=== PATIENT | female | born 1945 | race Caucasian/White ===

== ENCOUNTER 2020-01-23 14:00 | Outpatient (RCR) | payer SELFPAY | END 2020-09-05 14:25 | disposition home or self-care (01) | LOC: ANHCPRIII 14:00 | DX: J98.8 Other specified respiratory disorders (principal) | CPT/HCPCS: 99199 ==

== ENCOUNTER 2020-10-01 12:44 | Outpatient (CLI) | payer MEDICARE, SELFPAY ==
--- NOTE | ~2020-10-01 | MM_ITS ---
EXAMINATION: MM screening mihaela BI w sommer HISTORY: Screening TECHNIQUE: Craniocaudal and mediolateral oblique 3-D tomosynthesis images were obtained and synthetic 2-D images were generated. CAD analysis was submitted and interpreted. COMPARISON: Comparison to multiple prior studies sequentially, with oldest reviewed study dated 12/21. BREAST PARENCHYMAL COMPOSITION: There are scattered areas of fibroglandular density. FINDINGS: There is no evidence of suspicious mass, calcification, or architectural distortion to sugg est malignancy in either breast. There has been no suspicious interval change. IMPRESSION: 1. No mammographic evidence of malignancy. 2. Recommend routine screening mammography in one year. BI-RADS Category 1: Negative Reviewed, dictated and finalized at location A. MS CONSULTANT
== END 2020-10-01 12:45 | disposition home or self-care (01) ==
LOC: CHSIMG 12:45
PROVIDERS: PCP Internal Medicine; Visit Provider Internal Medicine
DX: Z12.31 Encounter for screening mammogram for malignant neoplasm of breast (principal)
CPT/HCPCS: 77063; 77067

== ENCOUNTER 2020-10-29 20:34 | Inpatient (IN) | payer MEDICARE, SELFPAY ==
[2020-10-29] VITALS (22 sets, daily range): BP systolic 129–173; BP diastolic 78–92; PULSE 99–111; RESP 24–40; TEMP 36.5; O2SAT 69–100
--- NOTE | ~2020-10-29 | XR_ITS ---
EXAMINATION: XR chest ET placement EXAM DATE: 10/30/2020 09:57 INDICATION: After intubation to confirm ET placement. TECHNIQUE: Portable AP frontal chest x-ray was obtained. Comparison is made to prior examination from 10/29/2020. FINDINGS: Endotracheal tube tip is 3 centimeters above the kristopher. Feeding tube is in position. Patient has small to moderate-sized bilateral pneumothoraces. There is moderate to severe amount of a cute bilateral airspace disease, likely infection or edema/ARDS. Clinical correlation. There are no sizable pleural effusions. The cardiomediastinal silhouette is prominent but magnified on this AP technique. Compared to previous examination, the pneumothoraces have developed. The airspace disease is unchange d. IMPRESSION: 1. Line and tube(s) in position. 2. Small to moderate bilateral pneumothoraces. 3. Moderate to severe acute airspace disease. Reviewed, dictated and finalized at location A. RVISOR INCISING
--- NOTE | ~2020-10-29 | XR_ITS ---
EXAMINATION: XR abdomen NG/feed tube insert EXAM DATE: 10/30/2020 09:57 INDICATION: Feeding tube placement. Intubated. TECHNIQUE: Frontal projection(s) of the abdomen for interpretation. Comparison is made to prior exami nation from 08/11/2009. FINDINGS: Feeding tube tip projects over gastric antrum, adequate. Endotracheal tube is in position. There is small to moderate bilateral pneumothoraces and moderate to severe airspace disease. The upp er abdominal bowel gas pattern is unremarkable. IMPRESSION: Feeding tube in position. Reviewed, dictated and finalized at location A. LER AND TEST PREPARER IMPRESSION: Feeding tube in position.
--- NOTE | ~2020-10-29 | CT_ITS ---
EXAMINATION: CTA chest PE protocol EXAM DATE: 10/30/2020 00:00 INDICATION: Shortness of breath, elevated d-dimer. TECHNIQUE: Spiral CTA of the chest (pulmonary arteries) was performed with 100 cc Omnipaque 350 intr avenous contrast injection. Images were acquired during the pulmonary arterial phase. Coronal maxi mum intensity projection 3D-reconstructions were created by the technologist on dedicated workstation . Axial, coronal and sagittal reformatted images were reviewed. The dose-length product (DLP) for t his examination was 654.49 mGy-cm. The exposure was tailored according to patient size (auto mA exp osure control), and iterative reconstruction (ASIR) was used as additional dose reduction technique. Comparison is made to prior examination from 03/30/2018. FINDINGS: There is right basilar segmental pulmonary embolism, low clot burden. No thoracic aortic dissection. Patient has moderate to severe pulmonary fibrosis, with interval development of groundgl ass opacities throughout the lungs which could be superimposed edema or infection, or more active sta ge of patient's chronic interstitial lung disease. There is moderate bronchiectasis. Several reactive mediastinal lymph nodes. Mild cardiomegaly. There are no pleural or pericardial effusions. Trache obronchial tree is patent. There is no mediastinal, hilar or axillary lymphadenopathy. There is n o pneumothorax. There is mild to moderate coronary arterial calcification, arterial sclerosis. Ther e is small sliding gastroesophageal hiatal hernia. There is mild to moderate thoracic spondylosis wi thout osteoblastic or osteolytic lesions identified. IMPRESSION: 1. Right basilar segmental pulmonary embolism, low clot burden. 2. Moderate to severe pulmonary fibrosis. Groundglass opacities throughout lungs, could be active in part of patient's interstitial lung disease (NSIP), edema or infection. No confluent consolidation. 3. Cardiomegaly. Pulmonary arterial hypertension. 4. Bronchiectasis. 5. Small hiatal hernia. Reviewed, dictated and finalized at location A. EAR MEDICINE TECH IMPRESSION: 1. Right basilar segmental pulmonary embolism, low clot burden. 2. Moderate to severe pulmonary fibrosis. Groundglass opacities throughout stu gs, could be active in part of patient's interstitial lung disease (NSIP), luisa a or infection. No confluent consolidation. 3. Cardiomegaly. Pulmonary arterial hypertension. 4. Bronchiectasis. 5. Small hiatal hernia.
--- NOTE | ~2020-10-29 | XR_ITS ---
EXAMINATION: XR chest-chest tube insert/pos EXAM DATE: 10/30/2020 11:37 INDICATION: charleen chest tube placement . TECHNIQUE: Portable AP frontal chest x-ray was obtained. Comparison is made to prior examination from earlier same date. FINDINGS: There are bilateral chest tubes overlying expected positions. Endotracheal tube tip is 2 ce ntimeters above the kristopher. Feeding tube is in position. Small anteromedially located right pneumothorax. There is moderate to severe amount of acute bilatera l airspace disease, likely infection or edema/ARDS. Clinical correlation. There are no sizable pleur al effusions. The cardiomediastinal silhouette is prominent but magnified on this AP technique. Pneumothoraces have significantly improved compared to previous exam. Airspace disease unchanged. IMPRESSION: 1. Tube(s) in position. 2. Small bilateral pneumothoraces, improved. 3. Moderate to severe acute airspace disease. Reviewed, dictated and finalized at location A. AGE MANAGEMENT CONSULTANT
--- NOTE | ~2020-10-29 | XR_ITS ---
EXAMINATION: XR chest 1V portable DATE: 10/29/2020 20:58 INDICATION: Shortness of breath. End-stage lung disease. TECHNIQUE: frontal view of the chest was obtained. COMPARISON: Chest radiograph dated 08/17/2019 FINDINGS: Lung volumes are decreased. Similar pattern of groundglass and coarse reticular opacities throughout both lungs with basilar predominance. No pleural effusion or pneumothorax. The cardiomediastinal silh ouette is normal. Moderate thoracic spondylosis. IMPRESSION: 1. Small lung volumes with no significant interval change in chronic diffuse bilateral interstitial l quinn disease. Reviewed, dictated and finalized at location A. CTOR GAME IMPRESSION: 1. Small lung volumes with no significant interval change in chronic diffuse bi lateral interstitial lung disease.
--- NOTE | 2020-10-29 20:43 | ECG_ITS ---
Measurements Intervals [place] Rate: 103 P: 32 VA: 224 QRS: -63 QRSD: 89 T: 78 QT: 324 QTc: 426 Interpretive Statements SINUS TACHYCARDIA WITH FIRST DEGREE AV BLOCK RSR' IN V1 OR V2, CONSIDER RIGHT VENTRICULAR HYPERTROPHY OR RIGHT VCD LEFT ANTERIOR FASCICULAR BLOCK VOLTAGE CRITERIA FOR LVH BORDERLINE ST-T WAVE ABNORMALITY- HIGH LATERAL LEADS BASELINE ARTIFACT- II, III, AVL, AVF ABNORMAL ECG Electronically Signed On 10-30-2020 7:06:15 MANAGER ORGANIZATIONAL by Ronn Archibald D.O.
--- NOTE | 2020-10-29 20:55 | ED.SOB ---
HPI - SOB/Dyspnea General Chief Complaint: Shortness of Breath/Dyspnea Stated Complaint: difficulty breathing Time Seen by Provider: 10/29/20 20:37 Source: patient Mode of arrival: EMS Limitations: no limitations History of Present Illness HPI Narrative: Patient is a 75-year-old female brought in respiratory distress, was in CPAP upon arrival. states that when she tried to stand up tonight she felt really weak oxygen saturation dropped and so they called EMS. When EMS arrived patient was in respiratory distress and immediately placed on a CPAP machine. Patient has a history of interstitial lung disease and on 15 L of O2 at home. Patient denies any cough, chest pain, abdominal pain, nausea, vomiting, fever or chills. Related Data Home Medications Medication Instructions Recorded Confirmed aspirin 81 mg PO DAILY 10/11/19 09/10/20 azathioprine 100 mg PO DAILY 10/11/19 09/10/20 calcium carbonate-vitamin D3 1 tablet PO BID 10/11/19 09/10/20 [Caltrate 600 plus D] prednisone 10 mg PO DAILY 10/11/19 09/10/20 rituximab [Rituxan] See Rx Instructions .ROUTE .COMPLEX 10/11/19 09/10/20 sildenafil 50 mg tablet 50 mg PO TID tablet 05/01/20 09/10/20 sulfamethoxazole 400 1 tablet PO 3XW tablet 05/01/20 09/10/20 mg-trimethoprim 80 mg tablet nintedanib 100 mg capsule 100 mg PO Q12H 09/10/20 09/10/20 Allergies Allergy/AdvReac Type Severity Reaction Status Date / Time No Known Allergies Allergy Verified 09/10/20 13:22 Review of Systems Review of Systems: All systems reviewed & are unremarkable except as noted in HPI and below Constitutional: Constitutional: Denies body ache(s), Denies chills, Denies excessive sweating, Denies fatigue, Denies fever(s), Denies headache(s), Denies lethargy, Denies malaise, Denies weakness and Denies weight loss Eyes: Eyes: Denies blurry vision, Denies change in vision and Denies loss of vision ENT: Denies dizziness, Denies ear discharge, Denies headache(s), Denies lip swelling, Denies epistaxis, Denies nasal congestion, Denies neck pain, Denies throat swelling and Denies tongue swelling Cardiovascular: Cardiovascular: Denies chest pain, Denies chest pain at rest, Denies chest pain with activity, Denies diaphoresis, Denies rapid heart rate, Denies edema, Denies irregular heart rhythm, Denies lightheadedness and Denies palpitations Respiratory: Respiratory: Denies chest congestion, Denies cough and Denies hemoptysis Gastrointestinal: Gastrointestinal: Denies abdominal pain, Denies melena, Denies hematochezia, Denies diarrhea, Denies nausea, Denies vomiting and Denies hematemesis Musculoskeletal: Musculoskeletal: Denies abnormal gait, Denies deformity, Denies joint swelling, Denies limited range of motion, Denies neck pain and Denies numbness Neurologic: Denies Abnormal speech present, Denies abnormal gait, Denies confusion, Denies dizziness, Denies headache(s), Denies focal weakness, Denies loss of vision, Denies numbness, Denies Other visual disturbances and Denies Sensory deficit (Neuro) Psychiatric: Psychiatric: Denies confusion, Denies depression, Denies auditory hallucinations, Denies homicidal ideation and Denies suicidal ideation Endocrine: Endocrine: Denies cold intolerance, Denies excessive sweating, Denies fatigue, Denies heat intolerance and Denies palpitations Hematologic/Lymphatic: Hematologic/Lymphatic: Denies easy bleeding and Denies easy bruising Allergic/Immunologic: Allergic/Immunologic: Denies lip swelling, Denies throat swelling and Denies tongue swelling PMFSH Past Medical History Medical History Hypothyroidism Skin lesion Surgical History Surgical History H/O right heart catheterization 01/2020 Family History Family History Father Patient's father is Heart disease Mother Heart disease
[2020-10-29 21:09] LABS: Basophils Percent Auto 0.2 % (0.2-1.2); Eosinophils Percent Auto 0.2 % (0-4.4); Hematocrit 47.2 % (37.0-47.0); Hemoglobin 15.5 g/dL (12.0-15.0); Immature Granulocyte Absolute 0.03 K/mm3 (0.00-0.031); Immature Granulocyte Percent A 0.5 % (0-0.5); Lymphocytes Absolute Auto 0.47 K/mm3 (0.9-3.2); Lymphocytes Percent Auto 7.9 % (18.3-44.2); Mean Corpuscular HGB Conc 32.8 g/dl (32-36); Mean Corpuscular Hemoglobin 30.8 pg (26-34); Mean Corpuscular Volume 93.8 fl (80-100); Mean Platelet Volume 9.6 fl (7.4-10.4); Monocytes Absolute Auto 0.3 K/mm3 (0.1-0.6); Monocytes Percent Auto 5.7 % (2.6-8.5); Neutrophils Absolute Auto 5.1 K/mm3 (1.3-6.7); Neutrophils Percent Auto 85.5 % (45.5-73.1); Platelet Count Result 214 k/mm3 (150-375); Red Blood Count 5.03 M/mm3 (4.2-5.4); Red Cell Distribution Width 13.2 % (11.5-14.5)
[2020-10-29] MEDS: IPRATROPIUM BR 0.02% INH SOLN 0.5 MG/2.5 ML VIAL INHALATION (21:20)
[2020-10-29] MEDS: ALBUTEROL SULFATE NEB 2.5 MG/0.5 ML INH 5 MG INHALATION (21:20)
[2020-10-29 21:22] LABS: Alanine Aminotransferase 27 U/L (4-35); Albumin Level 4.3 g/dL (3.5-5.1); Alkaline Phosphatase 68 U/L (38-126); Anion Gap 8 mmol/L (8-16); Aspartate Amino Transferase 55 U/L (14-36); Bilirubin,Total 1.5 mg/dL (0.2-1.3); Blood Urea Nitrogen 16 mg/dL (7-17); Calcium 9.3 mg/dL (8.4-10.2); Carbon Dioxide 33 mmol/L (22-30); Chloride 96 mmol/L (98-107); Estimated Glomerular Filt Rate > 60; Glucose 148 mg/dL (65-105); Potassium 4.8 mmol/L (3.4-5.0); Sodium 137 mmol/L (137-145)
[2020-10-29 21:25] LABS: Partial Thromboplastin Time 26.3 SECONDS (22.3-36.8); Prothrombin Time 13.4 Seconds (11.1-14.7)
[2020-10-29 21:28] LABS: D Dimer 2.49 ug/mL (<0.48)
[2020-10-29 21:31] LABS: Alveolar/Arterial O2 Gradient 356.7 mmHg; Base Excess ABG 1.9 mEq/l (+/-2.0); Fractional Inspired Oxygen 100 %; HCO3 ABG 27.3 mEq/l (22.0-26.0); Methemoglobin ABG 0.2 %THb (0-1.5); Oxygen Content ABG 21.8 %vol (16.0-22.0); Oxygen Saturation ABG 99.7 % (95.0-100.0); Oxyhemoglobin 98.1 % THb (90.0-100.0); PCO2 ABG 45.5 mmHg (35.0-45.0); PO2 ABG 310.8 mmHg (80.0-100.0); PO2 FiO2 Ratio Arterial Blood 3.11 %; Reduced Hemoglobin 0.7 %THb (0-5.0); Total Hemoglobin 15.3 g/dL (12.0-18.0); pH ABG 7.396 (7.350-7.450)
[2020-10-29 21:32] LABS: Device BIPAP; Expiratory Pressure 5 cmH2O; Inspiratory Pressure 12 cmH2O; Modified Allen's Test Pass; Site Drawn RIGHT RADIAL
[2020-10-29 21:33] LABS: NT Pro B Type Natriuretic Pept 138 PG/ML (5-100); Troponin I < 0.012 ng/mL (0.000-0.034)
[2020-10-30] VITALS (31 sets, daily range): BP systolic 126–183; BP diastolic 70–93; PULSE 88–124; RESP 23–40; TEMP 36.2–37; O2SAT 45–99; BMI 38.9
--- NOTE | 2020-10-30 00:20 | PC.NURSE ---
Pt. requesting to be taken on bipap. pt. placed on high flow o2 at 15L. ERP aware
[2020-10-30] MEDS: HEPARIN SOD/D5W 100 UNITS/ML 25,000 UNITS/250 ML BAG 18.34 UNITS IV CONT (01:13)
[2020-10-30] MEDS: IPRATROPIUM BR 0.02% INH SOLN 0.5 MG/2.5 ML VIAL INHALATION (02:54)
[2020-10-30] MEDS: ALBUTEROL SULFATE NEB 2.5 MG/0.5 ML INH 5 MG INHALATION (02:54)
--- NOTE | 2020-10-30 03:37 | PC.NURSE ---
This patient, Julia Cummings, was admitted to Intensive Care Unit-12. Patient/family oriented to hospital policies and general routines including ID bracelet, bed and alarms, visiting hours, pain management, procedures, bathroom and other care routines, personal items, smoking policy, room service/diet, and visiting hours. Information on how to activate the Rapid Response Team has been discussed. Patient/Family are encouraged to report perceived risks to care and to ask questions if they do not understand what they are told or what they should do.
[2020-10-30 04:53] LABS: Partial Thromboplastin Time 115.8 SECONDS (22.3-36.8)
[2020-10-30] MEDS: LACTATED RINGERS 1,000 ML 100 ML IV CONT (05:04)
[2020-10-30] MEDS: HEPARIN SOD/D5W 100 UNITS/ML 25,000 UNITS/250 ML BAG 17 UNITS IV CONT (05:04)
[2020-10-30] MEDS: LORazepam INJ (*CRX) 2 MG/ML VIAL 0.5 MG IV PUSH (06:26)
[2020-10-30] MEDS: hydrALAZINE HCL 20 MG/ML VIAL 10 MG IV PUSH (08:11)
[2020-10-30] MEDS: MORPHINE SULFATE (*CRX) 2 MG/ML INJ 1 MG IV PUSH (08:37)
[2020-10-30] MEDS: EPOPROSTENOL SODIUM 0.5 MG VIAL 1 MG INHALATION (10:15)
[2020-10-30] MEDS: CISATRACURIUM BESYLATE 200 MG in DEXTROSE 5% 80 ML 9.27 ML IV CONT (10:16)
[2020-10-30] MEDS: FENTANYL 2,500MCG/NS250ML(*CRX 2,500 MCG/250 ML BAG IV CONT (10:21)
[2020-10-30] MEDS: CISATRACURIUM BESYLATE 20 MG/10 ML VIAL 15.5 MG IV PUSH (10:25)
--- NOTE | 2020-10-30 11:13 | WPDCNINT ---
Assessment and Plan Assessment and plan (1) Acute hypoxemic respiratory failure: Code(s): J96.01 - Acute respiratory failure with hypoxia Status: Acute Assessment and Plan: Acute hypoxic respiratory failure likely related to possible worsening of the interstitial lung disease, possible COVID-19 pneumonia -SARS-CoV-2 PCR has been obtained and pending -patient was desaturating the 60s this morning, was consulted, patient was emergently intubated, post intubation patient developed bilateral pneumothoraces status post chest tube placed by surgery -patient currently on CMV mode of ventilation, low tidal volumes of 320, peep of 8, 100% FiO2 and rate of 32. Will maintain O2 sats greater than 88% given a severe interstitial lung disease - started patient on dexamethasone -continue bronchodilators (2) Bilateral pneumothorax: Code(s): J93.9 - Pneumothorax, unspecified Status: Acute Assessment and Plan: Bilateral pneumothoraces likely secondary to barotrauma. The automotive refinish technician at [facility] said that that was bound to happen due to her interstitial lung disease. -appreciate surgery placing bilateral chest tubes -chest x-ray post bilateral chest tubes with pneumothorax bilaterally (3) Acute pulmonary embolism: Qualifiers: Acute cor pulmonale presence: unspecified Pulmonary embolism type: other Qualified Code(s): I26.99 - Other pulmonary embolism without acute cor pulmonale Code(s): I26.99 - Other pulmonary embolism without acute cor pulmonale Status: Acute Assessment and Plan: Acute pulmonary embolism, -you heparin infusion -CTA chest 10/30/2020 shows 1. right basilar segmental pulmonary embolism, low clot burden. 2. Moderate to severe pulmonary fibrosis. Groundglass opacities throughout lungs, could be active in part of patient's interstitial lung disease (NSIP), edema or infection. No confluent consolidation. 3. Cardiomegaly. Pulmonary arterial hypertension. 4. Bronchiectasis. 5. Small hiatal hernia. (4) Interstitial pulmonary disease, unspecified: Code(s): J84.9 - Interstitial pulmonary disease, unspecified Status: Acute Assessment and Plan: Chronic interstitial lung disease, patient is followed by DR Hidalgo, automotive refinish technician at [facility], I discussed with him this morning and he stated that the patient is on Imuran, prednisone, Ofev, and rituximab. Patient uses 10 L of oxygen at rest at home and 15-18 L with exertion at home. Her interstitial lung disease has been worsening the course of years. The automotive refinish technician that if he could have called earlier and got in me earlier (as I had left a message for him early this morning prior to intubating the patient) he would have asked me not to intubate the patient. As her prognosis very poor and that she would not, the breathing machine (5) Essential hypertension: Code(s): I10 - Essential (primary) hypertension Status: Acute Assessment and Plan: Blood pressures have been stable now that patient is on sedation vacations (6) DVT prophylaxis: Code(s): Z29.9 - Encounter for prophylactic measures, unspecified Status: Acute Assessment and Plan: Continue heparin infusion Additional Plan Stress ulcer prophylaxis: Protonix Discussed with Yong, patient's and updated with patient's condition and plan of care. I also discussed with her regarding my discussion with the automotive refinish technician as [facility] healthcare. stated that he will be coming with daughter and will likely withdraw support as he does want her to suffer, he stated she did not want to be hooked up to machines. Code status: Full code Critical care time spent: 52 minutes Due to a high probability of clinically significant, life threatening deterioration, the patient required my highest level of preparedness to intervene emergently and I personally spent this critical care time directly and personally managing th
--- NOTE | 2020-10-30 11:36 | PM.PROC ---
Procedure Note - Detailed Date of procedure: 10/30/20 Pre-op diagnosis: ACUTE RESPIRATORY FAILURE, ACUTE PE bilateral pneumothorax Post-op diagnosis: same Procedure performed: placement of bilateral 20 [place] chest tube Description of procedure: The patient was in the ICU already intubated and sedated. A time-out was then done to verify the patient's identity, as well as the procedure being performed. I began with the right side and prepped and draped the right chest wall in normal sterile fashion. I then localized the area of our anticipated incision which was at the anterior axillary line at the level of the nipple. Once this was done, an incision was carried down through the skin and into the subcutaneous tissue. I then used a Jennifer clamp to gain access into the pleural space over the 4th rib space. A jarquin of air was noted upon gaining access. I then placed a 20 [place] chest tube into the right chest. This was directed posterior and superior. I then sutured the chest tube into position. Vaseline gauze and sterile dressing were placed and the tube was connected to the atrium. I then repeated the procedure on the left side again prepping and draping the left chest wall in normal sterile fashion. I then again localized the anticipated incision site at the anterior axillary line at the level of the nipple. I then made an incision and carried this down into the subcutaneous tissue. Using Jennifer clamped once again gain access into the chest cavity at the level of the 4th rib. Again a jarquin of air was noted upon gaining access into the left chest. I then placed a 20 [place] chest tube into the left chest again directing this posterior and superior. The chest tube was sutured into position and Vaseline gauze was placed around the opening. The tube was connected to the atrium. Sterile dressing was placed. Patient continues to be in critical condition in the ICU. Implants: bilateral 20 [place] chest tube Anesthesia: local Surgeon: Joelle Malik MD Estimated blood loss (mL): 10 Drains: No Packing: No Pathology: none sent Complications: No immediate complications Condition: critical Disposition: ICU Findings: bilateral pneumothorax status post bilateral chest tube
--- NOTE | 2020-10-30 11:47 | PM.CNGS ---
Assessment and Plan Assessment and plan (1) Acute hypoxemic respiratory failure: Code(s): J96.01 - Acute respiratory failure with hypoxia Status: Acute Assessment and Plan: will place bilateral chest tube History of Present Illness Consult details Consult date: 10/30/20 Reason for consult: chest tube Requesting physician: Jaz Duarte MD Narrative: The patient is a 75-year-old female with known severe interstitial lung disease presenting to the emergency department in respiratory failure. According to the family, the patient was very weak and having difficulty breathing. Workup in the emergency department was confirmatory of respiratory failure and distress requiring emergent intubation. The patient has now been transferred to the ICU and chest x-rays confirmatory of bilateral pneumothorax. We have been consulted for chest tube placement. Of note, the patient is on 15 L of oxygen at baseline. Review of Systems Review of Systems: ROS unobtainable: Yes unobtainable due to endotracheal tube PMFSH Past Medical History Medical History Hypothyroidism Skin lesion Surgical History Surgical History H/O right heart catheterization 01/2020 Family History Family History Father Patient's father is Heart disease Mother Heart disease Social History Social History Smoking status: Never smoker Second hand tobacco smoke exposure: No Alcohol intake: current Drinks per week: 3 Substance use: never Sexual Orientation (if Verbalized by the Patient): Straight or Heterosexual Spiritual care concerns: No Meds Home Medications and Allergies Home Medications Medication Instructions Recorded Confirmed Type aspirin 81 mg PO HS 10/11/19 10/30/20 History azathioprine 100 mg PO DAILY 10/11/19 10/30/20 History calcium carbonate-vitamin D3 1 tablet PO HS 10/11/19 10/30/20 History [Caltrate 600 plus D] prednisone 10 mg PO DAILY 10/11/19 10/30/20 History sulfamethoxazole 400 1 tablet PO 3XW tablet 05/01/20 10/30/20 History mg-trimethoprim 80 mg tablet nintedanib 100 mg capsule 100 mg PO Q12H 09/10/20 10/30/20 History sildenafil (pulm.hypertension) 20 mg PO TID 10/30/20 10/30/20 History simvastatin [Zocor] 20 mg PO HS 10/30/20 10/30/20 History Allergies Allergy/AdvReac Type Severity Reaction Status Date / Time No Known Allergies Allergy Verified 09/10/20 13:22 Vital Signs Vital Signs - 24 hr 10/29/20 20:30 10/29/20 20:40 10/29/20 20:42 Temperature 36.5 C Pulse Rate 102 H Respiratory Rate 25 H 37 H 40 H Blood Pressure 155/90 H Pulse Oximetry 100 100 10/29/20 20:43 10/29/20 20:45 10/29/20 21:00 Temperature Pulse Rate 100 103 H Respiratory Rate 31 H 30 H Blood Pressure Pulse Oximetry 100 100 10/29/20 21:15 10/29/20 21:30 10/29/20 21:31 Temperature Pulse Rate 104 H 104 H 103 H Respiratory Rate 29 H 33 H 24 H Blood Pressure 141/92 H Pulse Oximetry 100 100 100 10/29/20 21:45 10/29/20 22:00 10/29/20 22:01 Temperature Pulse Rate 106 H 103 H 103 H Respiratory Rate 31 H 26 H 24 H Blood Pressure 129/90 Pulse Oximetry 98 98 98 10/29/20 22:15 10/29/20 22:16 10/29/20 22:30 Temperature Pulse Rate 103 H 103 H 111 H Respiratory Rate 28 H 26 H 35 H Blood Pressure 129/90 Pulse Oximetry 97 97 69 L 10/29/20 22:31 10/29/20 22:50 10/29/20 23:00 Temperature Pulse Rate 108 H 102 H 99 Respiratory Rate 30 H 26 H 26 H Blood Pressure 173/87 H Pulse Oximetry 72 L 95 97 10/29/20 23:01 10/29/20 23:26 10/29/20 23:30 Temperature Pulse Rate 99 102 H 100 Respiratory Rate 26 H 26 H 24 H Blood Pressure 136/83 Pulse Oximetry 97 91 93 10/29/20 23:31 10/30/20 00:01 10/30/20 00:15 Temp
--- NOTE | 2020-10-30 12:22 | WPDPROCEDUR ---
Procedures Intubation Intubation Date: 10/30/20 Intubation Time: 09:54 A pre-procedural Time-Out was completed immediately before starting the procedure and confirmed: Patient Identification, Site, Procedure, Patient Position and the Availability of Requisite Equipment: Yes Sedative: etomidate Paralytic: rocuronium Laryngoscope: fiber optic video scope Assist device used: fiber optic device ET tube size: 7.5 Tube secured depth (cm): 23 Tube secured location: lips Tube placement confirmation: visualized tube passing through cords, equal breath sounds bilaterally, no breath sounds over epigastrium and confirmation by capnometry Patient tolerated procedure: well and no complications Intubation complications: none
--- NOTE | 2020-10-30 13:12 | PM.IMHP ---
H&P: HPI History of Present Illness Date/Time: 10/30/20 13:12 Chief complaint: ACUTE RESPIRATORY FAILURE, ACUTE PE Narrative: Date of visit 10/30 0900. Julia Cummings is a 75 year old female with known chronic interstitial lung disease on home O2 at 15 L with known pulmonary hypertension who presented to the emergency room with increasing shortness of breath and weakness and desaturation at home. According to her both had been ill the past week with a viral-like illness with coughing, malaise, low-grade fever, fatigue. The day of admission she became acutely short of breath and weak can be saturated a [place] to the emergency room. With BiPAP she did razor saturations into the low 90s and CTA revealed a right segmental pulmonary emboli with low clot burden and diffuse chronic lung disease. Her routine chest x-ray was unchanged from previous x-rays. She was admitted with acute on chronic respiratory failure possibly secondary to Covid, pulmonary emboli, or progression of her underlying disease. Review of Systems Review of Systems: Narrative: Review of systems difficult to obtain since she is having trouble talking with her extreme shortness of breath She does admit to increasing cough and shortness of breath pulmonary choudhury GI denied any diarrhea constipation melena or hematochezia CV some right-sided chest discomfort which she could not quantify no dysuria hematuria Integument no skin breakdown rashes Neuropsych no seizures no syncope Review of systems was abbreviated due to her shortness of breath PMFSH Past Medical History Medical History (Updated 10/30/20 @ 13:21 by Maxi Aguiar MD) Coronary artery disease Hypothyroidism Interstitial pulmonary disease Skin lesion Surgical History Surgical History H/O right heart catheterization 01/2020 Family History Family History Father Patient's father is Heart disease Mother Heart disease Social History Social History (Updated 10/30/20 @ 13:20 by Maxi Aguiar MD) Social History: Lives with her has a son and a daughter living and well who live in this area Smoking status: Never smoker Second hand tobacco smoke exposure: No Alcohol intake: current Drinks per week: 3 Substance use: never Sexual Orientation (if Verbalized by the Patient): Straight or Heterosexual Spiritual care concerns: No Meds Home Medications and Allergies Home Medications Medication Instructions Recorded Confirmed Type aspirin 81 mg PO HS 10/11/19 10/30/20 History azathioprine 100 mg PO DAILY 10/11/19 10/30/20 History calcium carbonate-vitamin D3 1 tablet PO HS 10/11/19 10/30/20 History [Caltrate 600 plus D] prednisone 10 mg PO DAILY 10/11/19 10/30/20 History sulfamethoxazole 400 1 tablet PO 3XW tablet 05/01/20 10/30/20 History mg-trimethoprim 80 mg tablet nintedanib 100 mg capsule 100 mg PO Q12H 09/10/20 10/30/20 History sildenafil (pulm.hypertension) 20 mg PO TID 10/30/20 10/30/20 History simvastatin [Zocor] 20 mg PO HS 10/30/20 10/30/20 History Allergies Allergy/AdvReac Type Severity Reaction Status Date / Time No Known Allergies Allergy Verified 09/10/20 13:22 Vital Signs Vital Signs - 24 hr 10/29/20 20:30 10/29/20 20:40 10/29/20 20:42 Temperature 36.5 C Pulse Rate 102 H Respiratory Rate 25 H 37 H 40 H Blood Pressure 155/90 H Pulse Oximetry 100 100 10/29/20 20:43 10/29/20 20:45 10/29/20 21:00 Temperature Pulse Rate 100 103 H Respiratory Rate 31 H 30 H Blood Pressure Pulse Oximetry 100 100 10/29/20 21:15 10/29/20 21:30 10/29/20 21:31 Temperature Pulse Rate 104 H 104 H 103 H Respiratory Rate 29 H 33 H 24 H Blood Pressure 141/92 H Pulse Oximetry 100 100 100 10/29/20 21:45 10/29/20 22:00 10/29/20 22:01 Temperature Pulse Rate 106 H 103 H 103 H Resp
[2020-10-30 13:30] LABS: SARS-CoV-2 RNA PCR Positive
[2020-10-30] MEDS: MORPHINE SULFATE (*CRX) 4 MG/ML INJ 5 MG IV PUSH (14:00)
[2020-10-30] MEDS: LORazepam INJ (*CRX) 2 MG/ML VIAL IV PUSH (14:00)
[2020-10-30] MEDS: MORPHINE SULFATE (*CRX) 2 MG/ML INJ IV PUSH (14:53)
--- NOTE | 2020-10-31 17:05 | PM.DDS ---
Discharge Sum: Prov Provider Primary care physician: Craig Ferguson DO Admitting provider: Galilea Marcial DO Consults: 10/30/20 Consult to Physician Routine Comment: md aware of pt. Consulting Provider: Jaz Duarte merchandising stock associate/MD group to consult: Felicia Reason for consultation: respiratory failure Has provider been notified: Yes 10/30/20 01:10 Consult to Physician Routine Comment: Consulting Provider: Ulices Monk Reason for consultation: ACUTE PE WITH RIGHT HEART STRAIN Has provider been notified: Yes 10/30/20 10:03 Consult to Physician Routine Comment: Consulting Provider: Jaz Duarte merchandising stock associate/MD group to consult: Surgery - Dr. Griffiths Reason for consultation: pneumothorax in room ICU 12 Has provider been notified: Yes 10/30/20 10:16 Consult to Physician Routine Comment: md notified Consulting Provider: Sridevi Davis merchandising stock associate/MD group to consult: PULMONOLOGY Reason for consultation: ILD, pulm HTN Has provider been notified: Yes Discharge Sum: Diag Contributing Factors (1) Coronary artery disease: (2) Acute and chronic respiratory failure with hypoxia: (3) Interstitial pulmonary disease, unspecified: (4) Acute pulmonary embolism: (5) Pure hypercholesterolemia: (6) Hypothyroidism: (7) Essential hypertension: (8) Pneumonia due to COVID-19 virus: Discharge Sum: Summary Date and Time Date of admission: 10/30/20 01:09 Summary Details: 75-year-old white female with chronic interstitial pulmonary disease on high-flow at 15 L nasal cannula home use presented to the emergency room with increasing shortness of breath. CT scan revealed pulmonary emboli and marked scarring. Subsequently COVID swab returned positive also. She continued to have increasing hypoxia with BiPAP and patient and family were approached and they decided to pursue mechanical ventilation. The patient's apprentice embalmer at [facility] was contacted and he encouraged the family to discontinue mechanical life support due to the fact that she would probably never be able to be extubated without tracheostomy. Family agreed and patient was terminally weaned and shortly thereafter. Additional Data Attending physician: Galilea Marcial DO
== END 2020-10-30 14:30 | disposition expired | DRG 208 ==
LOC: ANHED 10-30 01:23 → ANHICU 10-30 11:02
PROVIDERS: Admitting Provider Internal Medicine; Emergency Provider Emergency Medicine; PCP Internal Medicine; Visit Provider Internal Medicine
DX: U07.1 COVID-19 (principal); J96.21 Acute and chronic respiratory failure with hypoxia; I26.99 Other pulmonary embolism without acute cor pulmonale; J12.89 Other viral pneumonia; J84.9 Interstitial pulmonary disease, unspecified; J93.83 Other pneumothorax; I27.20 Pulmonary hypertension, unspecified; Z99.81 Dependence on supplemental oxygen; I25.10 Atherosclerotic heart disease of native coronary artery without angina pectoris; I10 Essential (primary) hypertension; E03.9 Hypothyroidism, unspecified; E78.00 Pure hypercholesterolemia, unspecified; Z79.82 Long term (current) use of aspirin; Z79.899 Other long term (current) drug therapy
CPT/HCPCS: 31500; 36415; 36600; 71045; 71275; 80053; 82375; 82805; 83050; 83880; 84484; 85025; 85380; 85610; 85730; 87635; 93005; 94002; 94003; 94640; 96374; 99291; C1729; C9803; J0360; J0456; J0696; J1100; J1644; J2060; J2250; J2270; J3010; J7120; Q9967; U0003